=== PATIENT | female | born 1990 | race Caucasian/White ===

== ENCOUNTER 2023-02-16 23:06 | Emergency (ER) | payer OTHER ==
[~2023-02-16] VITALS: Ht 152.4 cm; Wt 66.0 kg
[2023-02-16 23:09] VITALS: BP 121/99; O2SAT 99
[2023-02-17] MEDS ORDERED: TOPUD MT (01:06)
[2023-02-17] MEDS ORDERED: NAPR-681 MT ×2 (01:06)
[2023-02-17] MEDS ORDERED: CYCL5TAB MT (01:06)
[2023-02-17] MEDS ORDERED: LIDO700A15 TP (01:13)
[2023-02-17] MEDS ORDERED: CYCLOBENZAPRINE 10MG TABLET PO ONE (01:15)
[2023-02-17] MEDS ORDERED: HYDROCODONE/ACETAMINOPHEN 5/325MG TABLET PO ONE (01:15)
[2023-02-17 01:41] VITALS: PULSE 86; RESP 16; TEMP 98.1
== END 2023-02-17 01:42 | disposition home or self-care (01) ==
LOC: ER 23:41
DX: S80.11XA Contusion of right lower leg, initial encounter (principal); S39.012A Strain of muscle, fascia and tendon of lower back, initial encounter; W18.39XA Other fall on same level, initial encounter; Y93.89 Activity, other specified; Y92.89 Other specified places as the place of occurrence of the external cause; Y99.8 Other external cause status
CPT/HCPCS: 73590; 81025; 99283

== ENCOUNTER 2024-09-16 22:25 | Emergency (ER) | payer OTHER ==
[~2024-09-16] VITALS: Ht 152.4 cm; Wt 61.0 kg
[~2024-09-16 22:25] MED LIST: CYCL5TAB3 MT; LIDO-53 TP; TOPUD MT
[2024-09-16 22:46] VITALS: O2SAT 98
[2024-09-16] MEDS ORDERED: ACET-2708 MT (23:19)
[2024-09-16] MEDS ORDERED: LIDO-53 TP (23:19)
[2024-09-16 23:26] VITALS: PULSE 64; TEMP 37.8; O2SAT 100
[2024-09-16 23:29] VITALS: TEMP 100.1
[2024-09-16] MEDS: ACETAMINOPHEN 500MG TABLET PO ONE (23:29)
[2024-09-16 23:30] VITALS: BP 120/61; RESP 12
[2024-09-16] MEDS: LIDOCAINE 5% PATCH TOP SCH (23:30)
== END 2024-09-16 23:36 | disposition home or self-care (01) ==
LOC: ER 22:25
DX: M25.511 Pain in right shoulder (principal); M25.512 Pain in left shoulder; M25.559 Pain in unspecified hip; M54.2 Cervicalgia; M54.9 Dorsalgia, unspecified; M79.10 Myalgia, unspecified site; R10.2 Pelvic and perineal pain; R51.9 Headache, unspecified; V98.8XXA Other specified transport accidents, initial encounter; Y93.89 Activity, other specified; Y92.89 Other specified places as the place of occurrence of the external cause; Y99.8 Other external cause status
CPT/HCPCS: 99283